=== PATIENT | male | born 1970 | race Asian ===

== ENCOUNTER 2023-03-01 09:04 | Emergency (ER) | payer OTHER, SELFPAY ==
[2023-03-01 09:11] VITALS: BP 132/86; PULSE 67; RESP 16; TEMP 36.7; O2SAT 98
[2023-03-01 09:13] VITALS: BMI 27.4
--- NOTE | 2023-03-01 09:35 | ED.ABDPAIN ---
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 He noticed on February 24 a painful bulge in his left groin that seems to be worse when he is upright and certainly when lifting heavy objects. He denies any fever or chills. The pain stays in the same spot and does not radiate. He denies any nausea, vomiting and has no change in his bowel habits. He denies any dysuria, frequency or urgency and has no testicular pain or swelling Review of Systems Review of Systems Narrative: GENERAL: Denies chills, fatigue, malaise, fever, sweats. HEENT: Denies sinus pain, ear pain, sore throat, difficulty swallowing, dizziness. RESPIRATORY: Denies dyspnea, cough, wheezing, hemoptysis, sputum. CARDIOVASCULAR: Denies chest pain, palpitations, orthopnea, edema, GASTROINTESTINAL: See HPI : Denies dysuria, frequency, incontinence, hematuria, urinary retention. MUSCULOSKELETAL: denies weakness, joint pain, or bony pain SKIN: Denies rash, skin lesions, or other NEUROLOGIC: Denies weakness, headache, numbness, change in speech, confusion, seizures, incoordination. PSYCHIATRIC: No concerning psychosocial issues. 12 point review of systems is negative except for those stated above Exam Narrative Exam Narrative: GENERAL: [52] year old patient appears stated age. Well-developed patient, in mild distress. HEAD: Atraumatic. Normocephalic. EYES: Pupils equal round and reactive. Extraocular motions intact. No scleral icterus. No injection or drainage. ENT: Nose without bleeding, purulent drainage. Throat without erythema, tonsillar hypertrophy or exudate. Airway patent. NECK: Trachea midline. Non tender CARDIOVASCULAR: Regular rate and rhythm without murmurs, gallops, or rubs. RESPIRATORY: Clear to auscultation. Breath sounds equal bilaterally. No wheezes, rales, or rhonchi. GASTROINTESTINAL: Abdomen soft, some tenderness in left lower quadrant. When patient stands there is a palpable bulge in his left inguinal region consistent with hernia, there is no overlying erythema or redness, no bowel sounds within, this is easily reducible, nondistended. EXTREMITIES: No edema or joint tenderness. BACK: Nontender without deformity or crepitance. No flank tenderness. NEURO: AOx3. SKIN: No rash or erythema of visible areas Initial Vital Signs Initial Vital Signs: Vital Signs Temperature 98.0 F 03/01/23 09:11 Pulse Rate 67 03/01/23 09:11 Respiratory Rate 16 03/01/23 09:11 Blood Pressure 132/86 03/01/23 09:11 Pulse Oximetry 98 03/01/23 09:11 Oxygen Delivery Method Room Air 03/01/23 09:11 Course Vital Signs Vital signs: Vital Signs - 8 hr 03/01/23 09:11 Temperature 98.0 F Pulse Rate 67 Respiratory Rate 16 Blood Pressure 132/86 Pulse Oximetry 98 Oxygen Delivery Method Room Air MDM - Abdominal Pain MDM Narrative Medical decision making narrative: [52] year old patient presents with left lower quadrant pain and concern for inguinal hernia Multiple etiologies for patient's symptoms considered including, but not limited to: [Hernia versus other] Prior Charts reviewed in our EMR not available Primary Historian: patient Patient's history and physical exam are very reassuring, his abdomen is otherwise soft, he does have what what appeared to be left inguinal hernia that is easily reducible, there is no evidence of strangulation or incarceration. I did discuss with him the importance of follow-up and that this at some point may need surgical intervention. We discussed return precautions including increasing pain, inability to reduce the hernia, persistent vomiting or other concerning symptoms. We discussed that this will put him at risk to continue his work as it is contingent upon his ability to lift heavy objects. Findings and discharge diagnosis discussed with patient/family followed by verbalization of understanding Return precautions discussed with patient/family whom verbalize understanding of diagnosis and plan Discharge Plan Departure Patient Disposition: Home Clinical Impression: Hernia, inguinal, left Instructions: DI for Groin Hernia Activity Restrictions/Additional Instructions: *You have been diagnosed with [ left inguinal hernia]As we discussed, because it is easily reducible there is no indication for immediate intervention though follow-up *What to do: *Please continue to take your regular medications as directed. *Please follow up with your primary care provider in 2-3 days, call for an appointment. Let them know you were seen in the Emergency Department and that we ask that you be seen in follow up. We will electronically transmit a record of today's note if your PCP is in our system *Return to Emergency Department if you should have any new, worsening or concerning symptoms Referrals: Tawanda Nova MD [Physician] - Stand Alone Forms: Patient Portal/API
--- NOTE | 2023-03-01 09:48 | PC.NURSE ---
patients medical examination authorization form filled out by Dr Noel. spoke with pt's [facility] medical department that pt was not fit for work and copy of auth form in medical chart.
== END 2023-03-01 09:50 | disposition home or self-care (01) ==
PROVIDERS: Emergency Provider Emergency Medicine
DX: K40.90 Unilateral inguinal hernia, without obstruction or gangrene, not specified as recurrent (principal)
CPT/HCPCS: 99281